=== PATIENT | female | born 1950 | race Caucasian/White ===

== ENCOUNTER 2016-12-07 10:27 | Emergency (ER) | payer MEDICARE, OTHER ==
[2016-12-07 10:36] VITALS: TEMP 97.4; BMI 31.3
[2016-12-07] MEDS ORDERED: SODIUM CHLORIDE 1,000 ML IV ONE (11:26)
[2016-12-07 11:59] LABS: BASOPHIL 0.4 % (0-2.0); EOSINOPHIL 0.2 % (0-4.5); MCH 28.5 pg (25.7-33.7); MCHC 33.7 g/dl (32.0-36.0); MEAN CELL VOLUME 84.6 fl (80-96); MEAN PLT VOLUME 8.4 fl (7.5-11.1); NEUTROPHILS 74.2 % (42.8-82.8); PLATELET COUNT 278 K/MM3 (134-434); RDW 12.9 % (11.6-15.6)
--- NOTE | 2016-12-07 12:08 | PDOC ---
History of Present Illness <Natalio Rodriguez - Last Filed: 12/07/16 15:47> - History of Present Illness Initial Comments: 12/07/16 19:15 The patient is a 66 year old female, with a significant past medical history of opioid dependence, who presents to the emergency department with intermittent palpitations and dizziness since 8am this morning when she was on the bus on her way to the methadone clinic. She states the PA at the clinic today suggested she come to the ED. She states she feels her heart is beating more prominently. She also states she can feel a pulse behind her eyes. She states she was seen about a week ago in [place] for the same symptoms and had a negative work-up. The patient states she was seen in the recent past by family [employer] teacher, Dr. Bruce, where she had a stress test and echocardiogram with no acute findings. The patient states she is looking to make an appointment with a GI doctor because she feels there is something wrong with her GI tract. The patient states she lives alone at home and has been depressed lately. Pt denies any current complaints. She denies chest pain, shortness of breath, headache and dizziness. She denies fever, chills, nausea, vomit, diarrhea and constipation. She denies dysuria, frequency, urgency and hematuria. Allergies: NKDA Social history: tobacco cessation 1 year ago PCP - Dr. Joi [facility] Le[employer] Colorer - Dr. Narciso Bruce <Aleena Acevedo - Last Filed: 12/07/16 19:16> - General Chief Complaint: Weakness Stated Complaint: Palpitations Past History - Past Medical History HTN: Yes Hypercholesterolemia: Yes - Surgical History Cholecystectomy: Yes - Psycho/Social/Smoking Cessation Hx Anxiety: No Suicidal Ideation: No Smoking History: Former smoker Have you smoked in the past 12 months: No Number of Cigarettes Smoked Daily: 5 Information on smoking cessation initiated: No 'Breaking Loose' booklet given: 12/17/14 Hx Alcohol Use: No Drug/Substance Use Hx: No Substance Use Type: None <Natalio Rodriguez - Last Filed: 12/07/16 15:47> <Aleena Acevedo - Last Filed: 12/07/16 19:16> - Past Medical History Allergies/Adverse Reactions: Allergies Allergy/AdvReac Type Severity Reaction Status Date / Time No Known Allergies Allergy Verified 12/07/16 10:32 Home Medications: Ambulatory Orders Albuterol 0.083% Nebulizer Zoey [Ventolin 0.083%] 1 neb NEB QID PRN 12/17/14 Amlodipine Besylate [Norvasc -] 10 mg PO DAILY 12/17/14 Aspirin [ASA -] 81 mg PO DAILY 12/17/14 Benazepril HCl 20 mg PO DAILY 12/17/14 Methadone HCl 50 mg PO DAILY 12/17/14 Review of Systems - Review of Systems Able to Perform ROS?: Yes Comments:: 12/07/16 19:15 CONSTITUTIONAL: No reported: Fever, Chills, Diaphoresis, Generalized Weakness, Malaise, Loss of Appetite HEENT: No reported: Rhinorrhea, Nasal Congestion, Throat Pain, Throat Swelling, Difficulty Swallowing, Mouth Swelling, Ear Pain, Eye Pain, Visual Changes CARDIOVASCULAR: (+) Palpitations, Lightheadedness, No reported: Chest Pain, Syncope, Irregular Heart Rate, Peripheral Edema RESPIRATORY: No reported: Cough, Shortness of Breath, SOB with Exertion, Orthopnea, Wheezing , Stridor, Hemoptysis GASTROINTESTINAL: No reported: Abdominal pain, Abdominal Distension, Nausea, Vomiting, Diarrhea, Constipation, Melena, Hematochezia GENITOURINARY: No reported: Dysuria, Frequency, Urgency, Hesitancy, Flank Pain, Genital Pain MUSCULOSKELETAL: No reported: Myalgia, Arthralgia, Joint Swelling, Back pain, Neck Pain SKIN: No reported: Rash, Itching, Pallor HEMEATOLOGIC/IMMUNOLOGIC: No reported: Easy Bleeding, Easy Bruising, Lymphadenopathy, Frequent infections ENDOCRINE: No reported: Unexplained Weight Gain, Unexplained Weight Loss, Heat Intolerance , Cold Intolerance NEUROLOGIC: No reported: Headache, Focal Weakness, Paresthesias, Vertigo, Lightheadedness, Unsteady Gait, Seizure, Mental Status Changes, Incontinence PSYCHIATRIC: No reported: Anxiety, Depression <Aleena Acevedo - Last Filed: 12/07/16 19:16> *Physical Exam - Vital Signs Last Vital Signs Temp Pulse Resp BP Pulse Ox 97.4 F L 53 L 20 138/82 97 12/07/16 10:33 12/07/16 10:33 12/07/16 10:33 12/07/16 10:33 12/07/16 10:33 <Natalio Rodriguez - Last Filed: 12/07/16 15:47> - Vital Signs Last Vital Signs Temp Pulse Resp BP Pulse Ox 97.4 F L 81 16 149/74 97 12/07/16 10:33 12/07/16 16:00 12/07/16 16:00 12/07/16 16:00 12/07/16 16:00 - Physical Exam Comments: 12/07/16 19:15 GENERAL: The patient is awake, alert, and fully oriented, Nontoxic - in no acute distress. HEAD: Normocephalic, atraumatic. EYES: extraocular movements intact, sclera anicteric, conjunctiva clear. ENT: Normal voice, Moist mucous membranes. NECK: Normal range of motion, supple LUNGS: Breath sounds equal, clear to auscultation bilaterally. No wheezes, no rhonchi, no rales. HEART: regular with some respiratory variation ABDOMEN: Soft, nontender, normoactive bowel sounds. No guarding, no rebound.No CVA tenderness EXTREMITIES: Normal range of motion, no edema. No clubbing or cyanosis. No cords, erythema, or tenderness. NEUROLOGICAL: No facial assymetry, Normal speech, PSYCH: Normal mood, normal affect. SKIN: Warm, Dry, normal turgor, <Aleena Acevedo - Last Filed: 12/07/16 19:16> Heart Score/ECG Review - ECG Impressions Comment:: 12/07/16 14:28 Twelve-lead EKG was performed and reviewed by me. There is normal sinus rhythm with rate of [address] changes suggestive of ischemia <Natalio Rodriguez - Last Filed: 12/07/16 15:47> ED Treatment Course - LABORATORY CBC & Chemistry Diagram: 12/07/16 11:20 12/07/16 11:20 - RADIOLOGY Radiology Studies Ordered: Category Date Time Status CHEST X-RAY PORTABLE* [RAD] Stat Radiology 12/07/16 11:26 Completed <Natalio Rodriguez - Last Filed: 12/07/16 15:47> - LABORATORY CBC & Chemistry Diagram: 12/07/16 11:20 12/07/16 11:20 - ADDITIONAL ORDERS Additional order review: Laboratory Results 12/07/16 12/07/16 12/07/16 13:50 11:20 11:20 Sodium 143 Potassium 4.1 Chloride 106 Carbon Dioxide 29 Anion Gap 8 BUN 10 Creatinine 0.8 Creat Clearance w eGFR > 60 Random Glucose 93 Calcium 9.0 Total Bilirubin 0.6 AST 21 ALT 36 Alkaline Phosphatase 104 Creatine Kinase 80 Troponin I < 0.02 Total Protein 7.4 Albumin 3.9 TSH 0.27 L Urine Color Straw Urine Appearance Clear Urine pH 8.0 D Ur Specific [employer] 1.006 Urine Protein Negative Urine Glucose (UA) Negative Urine Ketones Negative Urine Blood Negative Urine Nitrite Negative Urine Bilirubin Negative Urine Urobilinogen Negative Ur Leukocyte Esterase Trace H Urine RBC <1 Urine WBC 2 12/07/16 11:20 RBC 4.61 MCV 84.6 MCHC 33.7 RDW 12.9 MPV 8.4 Neutrophils % 74.2 Lymphocytes % 21.0 D Monocytes % 4.2 Eosinophils % 0.2 Basophils % 0.4 - Medications Given in the ED: ED Medications Discontinued Medications Generic Name Dose Route Start Last Admin Trade Name Freq PRN Reason Stop Dose Admin Sodium Chloride 1,000 mls @ 1,000 mls/hr 12/07/16 11:26 12/07/16 11:49 Normal Saline - IV 12/07/16 12:25 1,000 mls/hr .Q1H ONE Administration <Aleena Acevedo - Last Filed: 12/07/16 19:16> Medical Decision Making - Medical Decision Making 12/07/16 12:50 66y F presenting with intermittent episodes of palpitations and lightheadedness - pt state she has had thess sypmtoms for a whiel, and had seen cardiology and had a workup - also went [facility] and was worked up in the ED and was dc. pt currently asypmtomatic. will ck labs, ekg will dsicsus with dr. bruce (cards) anticipate d/c with outpatient mangaement if labs ekg normal A portion of this note was documented by scribe services under my direction. I have reviewed the details of the note, within reason, and agree with the documentation with the following case summary and management plan written by me 12/07/16 14:23 labs reviewed tsh noted slightly low ekg shows nsr with some pvcs case dw dr. atkinson - reviewed notes from prior workup - stress test in 05/16 - harsha protocol stage 2, echo - 8/22 - normal ventricular function, no valve disease nuclear stress - normal perfusion, EF normal, normal LV function doesnt think she had the holter completed. 12/07/16 15:[address] robison will set up holter for the patient as an outpatient. pt currently asymtopatic will have her fu with dr. bruce on sunday. I discussed the physical exam findings, ancillary test results and final diagnoses with the patient. I answered all of the patient's questions. The patient was satisfied with the care received and felt comfortable with the discharge plan and treatment plan. The patient will call their primary care physician within 24 hours to arrange follow-up and will return to the Emergency Department with any new, persistent or worsening symptoms. <Natalio Rodriguez - Last Filed: 12/07/16 15:47> *DC/Admit/Observation/Transfer - Discharge Dispostion Admit: No <Natalio Rodriguez - Last Filed: 12/07/16 15:47> - Attestations Scribe Attestion: 12/07/16 19:15 Documentation prepared by Aleena Acevedo, acting as medical reception specialist for Natalio Rodriguez MD, MD <Aleena Acevedo - Last Filed: 12/07/16 19:16> Diagnosis at time of Disposition: Palpitations - Discharge Dispostion Disposition: HOME Condition at time of disposition: Improved - Referrals Referrals: Joi Lerner MD [Primary Care Provider] - Narciso Bruce MD [Staff Physician] - - Patient Instructions Printed Discharge Instructions: DI for Palpitations Additional Instructions: Return to the emergency department immediately with ANY new, persistent or worsening symptoms. Dr. robison will set up a holter monitor for you - someone will call you to schedule an appointment to set up the monitor tomorrow. You MUST call and follow up with your doctor on sunday for further evaluation of your symptoms. Results were discussed with you. Please make sure your doctor reviews the results of your emergency evaluation.
[2016-12-07 12:27] LABS: TROPONIN I < 0.02 ng/ml (0.00-0.05)
[2016-12-07 12:33] LABS: ALBUMIN 3.9 g/dl (3.4-5.0); ALK PHOS 104 U/L (45-117); ANION GAP 8 (8-16); BILIRUBIN,TOTAL 0.6 mg/dL (0.2-1.0); CO2 29 mmol/L (21-32); CREATININE 0.8 mg/dL (0.55-1.02); GLUCOSE,RANDOM 93 mg/dL (74-106); SGOT/AST 21 U/L (15-37); SGPT/ALT 36 U/L (12-78); THYROID STIMULATING HORMONE 0.27 uIU/ml (0.358-3.74); TOT PROT 7.4 g/dl (6.4-8.2)
[2016-12-07 13:57] LABS: URINE APPEARANCE CLEAR; URINE BILIRUBIN NEGATIVE (NEGATIVE); URINE BLOOD NEGATIVE (NEGATIVE); URINE COLOR STRAW; URINE GLUCOSE (UA) NEGATIVE (NEGATIVE); URINE KETONE NEGATIVE (NEGATIVE); URINE NITRITE NEGATIVE (NEGATIVE); URINE PROTEIN NEGATIVE (NEGATIVE); URINE UROBILINOGEN NEGATIVE E.U./dl (0.2-1.0)
[2016-12-07 14:12] LABS: URINE LEUK ESTERASE TRACE (NEGATIVE)
[2016-12-07 14:35] LABS: URINE RBC <1 /hpf (0-3); URINE WBC 2 /hpf (3-5)
--- NOTE | 2016-12-07 15:57 | EKG ---
Test Reason : Blood Pressure : / mmHG Vent. Rate : 084 BPM Atrial Rate : 084 BPM P-R Int : 152 ms QRS Dur : 092 ms QT Int : 384 ms P-R-T Axes : 055 050 050 degrees QTc Int : 453 ms SINUS RHYTHM WITH PREMATURE SUPRAVENTRICULAR COMPLEXES OTHERWISE NORMAL ECG WHEN COMPARED WITH ECG OF 17-DEC-2014 10:19, PREMATURE SUPRAVENTRICULAR COMPLEXES ARE NOW PRESENT Confirmed by MANAS GAMBOA, EB ([id number]) on 12/07/2016 3:57:29 PM Referred By: Confirmed By:EB MALAGON MD
[2016-12-07 16:01] VITALS: BP 149/74; PULSE 81
== END 2016-12-07 16:01 | disposition home or self-care (01) ==
LOC: JER 10:27
PROC: 3E0337Z Introduction of Electrolytic and Water Balance Substance into Peripheral Vein, Percutaneous Approach (ICD-10-PCS; principal; 2016-12-07)
DX: R00.2 Palpitations (principal); I10 Essential (primary) hypertension; E78.00 Pure hypercholesterolemia, unspecified; F11.20 Opioid dependence, uncomplicated
CPT/HCPCS: 36415; 71010-TC; 80053; 81003; 81015; 82550; 84443; 84484; 85025; 93005; 93010; 99282-25